=== PATIENT | female | born 1970 | race Caucasian/White ===

== ENCOUNTER → 2017-03-09 | Outpatient (CLI) | payer MEDICARE, MEDICAID ==
[~2017-03-09] MED LIST: ABILIFY10 MG PO; ACETAMINOPHEN-1 EAC1 PO; AMITRIPTYLINE H10 M1 PO; ASPIRIN81 M2 PO; ATORVASTATIN CA40 MG PO; BACTRIM DS TAB1 EACH PO; BENTYL; BENTYL 20 MG TA20 M1 PO; BISACODYL SUPP10 MG RECTAL; BUSPAR; BUSPAR30 MG PO; BYSTOLIC 5 MG5 M1 PO; CLOMIPRAMINE HC50 M1 PO; COLACE100 MG PO; DIABETA 1.25M1.25 M1; EFFEXOR; EFFEXOR XR150 MG PO; EFFEXOR50 MG PO; ERYTHROMYCIN E3.5 G1 OPHTHALMIC; FLEXERIL PO; GABAPENTIN; HYDROCHLOROTHIA25 M1 PO; JANUMET; JANUMET 50-5001 EACH PO; JANUMET XR 1001 EACH PO; JANUMET XR 50-1 EACH PO; JANUVIA100 MG PO; LANTUS SOL100 UNIT/1 SQ; LEVAQUIN 500 M50012 PO; LEVEMIR FL100 UNIT/2; LEXAPRO 10 MG T10 M1 PO; LIDOCAINE VISC100 ML PO; LIORESAL 10 MG10 MG PO; LISINOPRIL; LUNESTA; MEDROLDOSEPACK PO; METFORMIN; METFORMIN HCL500 MG PO; METOCLOPRAMIDE10 MG PO; MOBIC; MOBIC15 MG PO; NAPROSYN500 MG PO; NEURONTIN600 MG; NEXIUM; NEXIUM 40 MG CA40 M1 PO; NICOTINE TRANSD21 M1 TD; NICOTINE TRANSD21 M1 TRANSDERM; NORCO 10-325 T1 EACH PO; NORFLEX100 MG PO; OXYCONTIN10 M1 PO; PERCOCET 5-3251 EACH PO; PREDNISONE 10 M10 MG PO; PREDNISONE 20 M20 MG PO; PRINIVIL10 MG; PRINIVIL10 MG PO; PROMETHAZINE D480 ML PO; REGLAN 10 MG TA10 MG PO; ROBAXIN 750 MG750 M1; ROBAXIN 750 MG750 M1 PO; TESSALON PERLE100 MG PO; TOPAMAX 25 MG T25 M1 PO; TRULICITY0.75 MG/0.; TRULICITY0.75 MG/0. SQ; TYLENOL325 MG PO; VISTARIL; VITAMIN D32000 UNI1 PO; WELLBUTRIN XL300 MG; ZANAFLEX4 M1; ZIAC; ZIAC 10-6.25 M1 EACH PO; ZOCOR40 MG PO; ZOFRAN ODT4 MG PO; ZPAK PO
== END ==
LOC: M.RAD 14:49
DX: Z13.820 Encounter for screening for osteoporosis (principal); J44.1 Chronic obstructive pulmonary disease with (acute) exacerbation; Z78.0 Asymptomatic menopausal state

== ENCOUNTER → 2017-05-05 | Outpatient (CLI) | payer MEDICARE, MEDICAID | LOC: M.MRI 08:03 | DX: M50.10 Cervical disc disorder with radiculopathy, unspecified cervical region (principal); M25.78 Osteophyte, vertebrae; Z98.890 Other specified postprocedural states ==

== ENCOUNTER → 2017-05-25 | Outpatient (CLI) | payer MEDICARE, MEDICAID | LOC: M.RAD 13:07 | DX: Z12.31 Encounter for screening mammogram for malignant neoplasm of breast (principal); J44.1 Chronic obstructive pulmonary disease with (acute) exacerbation ==

== ENCOUNTER → 2017-06-10 | Outpatient (CLI) | payer MEDICARE, MEDICAID | LOC: M.RAD 12:16 | DX: M43.26 Fusion of spine, lumbar region (principal) ==

== ENCOUNTER → 2017-12-08 | Outpatient (CLI) | payer MEDICARE, MEDICAID ==
--- NOTE | ~2017-12-08 | PAINCON ---
[address] [address] PAIN MANAGEMENT CONSULTATION Name: CKJAMEE SU [facility] [id number] Admission: 12/08/17 Attend Phys: Deo Mcintosh MD Discharge: Date of : 66 Report #: [id number] THIS REPORT FOR: //name// CC: Dr. Gavin Dr. Pressley [facility] physician/PCP Deo Mcintosh DATE OF SERVICE: 12/08/2017 PRIMARY CARE PHYSICIAN: Dr. Tiera Loja CHIEF COMPLAINT: Pain in the arms, shoulders and hands. HISTORY OF PRESENT ILLNESS: The patient is a 47-year-old female who has been referred to the pain clinic. The patient has been having pain and discomfort, which has been problematic for some time. Notes that the pain is worse when she is moving in with activity. It is not sure that anything makes the pain significantly better. Describes it as continuous, constant, shooting, cramping, aching, pulling and tender. Rates her pain as a 9/10. She has had problems with pain in the back secondary to lumbar radiculopathy and has undergone decompressive lumbar laminectomy in the past. The surgeries were in 2009 and 2013. She has undergone epidural steroid injections in the past. The patient states that she is having pain in the neck. She has undergone cervical diskectomy with fusion at C5-C6. ALLERGIES: DILAUDID. PAST MEDICAL HISTORY: Diabetes, hypertension, liver disease, stomach problems, joint disease/arthritis, stage IV cirrhosis of liver, carpal tunnel problems. The patient complains of bilateral arm pain, shoulder pain, hand pain. She is experiencing frequent spasms. Has constant pain with weakness in her back and neck area. The patient is currently in physical therapy. She continues to note frequent tingling in her hands. PAST SURGICAL HISTORY: 1. Three lower back surgeries, neck surgery C5/C6 cervical fusion in 2013. 2. Left knee surgery. 3. Cholecystectomy in 2012. 4. Hysterectomy in 2012. 5. Lumbar surgery in 2012. 6. Cervical surgery with ACDS in 2013, persistent cervical pain with radiculopathy. SOCIAL HISTORY: [place] [address] PAIN MANAGEMENT CONSULTATION Name: JAMEE STOVER Room: [facility]#: [id number] Admission: 12/08/17 Attend Phys: Deo Mcintosh MD Discharge: Date of : 66 Report #: [id number] REVIEW OF SYSTEMS: Generally good health, recent weight change, decreased appetite, fever, night sweats, headaches, wears glasses, frequent coughs, loss of appetite, joint pain, joint stiffness, muscle weakness, muscle cramps, back pain, difficulty walking, diabetes, excessive thirst, frequent recurring headaches, numbness and tingling sensation over the arms. LABORATORY DATA: No new laboratory values are available. PAIN CLINIC ASSESSMENT/PQRS: 1. History of osteoarthritis. The patient is not being treated for rheumatoid arthritis. 2. Height 5 feet 3 inches, weight 181 pounds, BMI is 32. 3. Vital Signs: Blood pressure 150/107, heart rate 75, respiratory rate 18, room air saturation 97%, temperature 98.4. 4. Pain intensity 9/10. 5. Fall history: The patient states that she did fall over a chair as well as fall over while walking. 6. Blood thinner. The patient is on her blood thinning medication. 7. Hypertension. The patient is not being treated for hypertension. 8. Opioid greater than 6 weeks. The patient is not receiving opioid medications. 9. Risk assessment tool. 10. Functional assessment tool. 11. Recreational drug use. The patient denies use of recreational drugs. 12. Tobacco: Has smoked for 23 years, 1 pack of cigarettes per day at this juncture. 13. Alcohol: The patient denies frequent use of alcoholic beverages. PHYSICAL EXAMINATION: GENERAL: The patient is a well-developed, well-nourished white female. Appears her stated age. She is alert and oriented x 3. Her affect is appropriate. Speech is fluent. HEENT: Normocephalic, atraumatic. Extraocular eye muscles intact. Sclerae nonicteric. Mucous membranes are moist. NECK: Without JVD or adenopathy. LUNGS: Clear to auscultation. EXTREMITIES: The patient has some weakness involving her arms bilaterally, shoulders and down into her hands. Rates the pain as a 9/10 with numbness and tingling sensations in her hands. Notes some muscle spasms as well. IMPRESSION: 1. Cervical radiculopathy without myelopathy. 2. History of spondylolisthesis of the lumbar region. 3. Lumbar radiculopathy, history in the past. 4. History of SI joint inflammation. [address] [place] [address] PAIN MANAGEMENT CONSULTATION Name: JAMEE STOVER Room: [facility]#: [id number] Admission: 12/08/17 Attend Phys: Deo Mcintosh MD Discharge: Date of : 66 Report #: [id number] 5. Morbid obesity. 6. Obstructive sleep apnea. 7. Essential hypertension. 8. Type 2 diabetes. 9. Osteoarthritis of both knees. 10. Gastroesophageal reflux. 11. Gastroparesis. 12. Cervical spondylosis without myelopathy. 13. 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 14. Spondylolisthesis in the lumbar region. RECOMMENDATIONS: We discussed treatment options with the patient. At this point, we will consider a cervical epidural steroid injection. Unfortunately, the patient has had a flu shot. We explained to the patient the need to give us adequate amount of time for body to mount a response to the flu vaccine. She will return to the pain clinic in the near future. At that time, we will then undergo a cervical epidural steroid injection with the hope of decreasing the patient's pain and discomfort. We would like to thank you for letting us participate in her care. We hope she continues to improve. By: [id number]. Maldonado Mcintosh MD /KLAUDIA
== END ==
LOC: M.PC 02:48
DX: M79.602 Pain in left arm (principal); M79.601 Pain in right arm; M25.512 Pain in left shoulder; M25.511 Pain in right shoulder; M79.642 Pain in left hand; M79.641 Pain in right hand; M54.12 Radiculopathy, cervical region; M54.16 Radiculopathy, lumbar region; M43.16 Spondylolisthesis, lumbar region

== ENCOUNTER → 2019-03-15 | Outpatient (CLI) | payer MEDICARE, MEDICAID | LOC: M.RAD 13:33 | DX: Z12.31 Encounter for screening mammogram for malignant neoplasm of breast (principal) ==

== ENCOUNTER → 2019-12-25 | Outpatient (CLI) | payer MEDICARE, MEDICAID ==
[~2019-12-25] MED LIST changes: +AMITRIPTYLINE H10 M3 PO
--- NOTE | ~2019-12-25 | PAINCON ---
[address] [address] PAIN MANAGEMENT CONSULTATION Name: JAMEE STOVER Room: [facility].#: [id number] Admission: 12/25/19 Attend Phys: Deo Mcintosh MD Discharge: Date of : 66 Report #: [id number] THIS REPORT FOR: cc: RADHA RIVERA NP, KATHERINE J. NP ~ Deo Mcintosh MD DATE OF SERVICE: 12/25/2019 CHIEF COMPLAINT: Bilateral shoulder and neck pain. HISTORY: The patient is a 49-year-old female who has been referred to the pain clinic. She has noticed a worsening and return of pain and discomfort in her neck, shoulders, and rates it as an 8/10. In the past, she has had problems with her neck. She has undergone cervical fusion and diskectomy at C5-C6. She has noticed a recurrence of pain and discomfort, rates it as an 8/10. In the past, she has had an MRI of her shoulder, neck and chest. She has returned today with the hopes of undergoing a cervical epidural injection, notes that her pain is worse with walking, sitting, standing, climbing stairs, and bending, activities of daily living increases her discomfort. She does try heat as well as stretching. She has returned with the desire to undergo an epidural injection in the near future. ALLERGIES: DILAUDID. CURRENT MEDICATIONS: Tylenol 500 mg 1 p.o. p.r.n., Flexeril 10 mg, Nexium 20 mg b.i.d., insulin as directed, lisinopril 10 mg, Janumet 50/500, Lipitor, Bystolic. PAIN CLINIC ASSESSMENT AND PQRS: 1. The patient has some osteoarthritic changes in the neck area. She is not being treated for rheumatoid arthritis. 2. Height 5 feet 3 inches, weight 207 pounds, BMI 35. 3. Vital signs: Blood pressure is 130/70, heart rate 82, respiratory rate 18, room air saturation 97, temperature 97.5. 4. Pain intensity 09/16. 5. Fall history: The patient has not fallen in the last 3 months. 6. Blood thinner. The patient is not on a blood thinning medication. 7. Hypertension. The patient is not being treated for hypertension. 8. Opioids greater than 6 weeks. The patient receives receives medication from her primary. 9. Risk assessment tool, low for opioid use. 10. Functional assessment tool reviewed. 11. Recreational drug use: The patient denies. 12. Tobacco: The patient smoked 23 years, smokes 1 pack of cigarettes per day. 13. Alcohol. The patient denies frequent use [place] [address] PAIN MANAGEMENT CONSULTATION Name: JAMEE STOVER Room: [facility]#: [id number] Admission: 12/25/19 Attend Phys: Deo Mcintosh MD Discharge: Date of : 66 Report #: [id number] PHYSICAL EXAMINATION: GENERAL: The patient is a well-developed, well-nourished white female, appears her stated age. She is alert and oriented x 3. Her affect is appropriate. Speech is fluent. HEENT: Normocephalic, atraumatic. Extraocular eye muscles intact. The patient has a well-healed scar in the anterior portion of her neck. She complains of some increased pain in the lumbar area. Notes increased pain with flexion and extension of her neck. LUNGS: Clear to auscultation. EXTREMITIES: Muscle strength judged to be 5-/5 for the major muscle groups in the upper extremity. Muscle strength in the lower extremity, 5/5 for the major muscle groups in the lower extremity. IMPRESSION: 1. Cervical radiculopathy without myelopathy. 2. History of spondylolisthesis of the lumbar region. 3. History of lumbar radiculopathy in the past. 4. Sacroiliac joint inflammation. 5. Morbid obesity. 6. Obstructive sleep apnea. 7. Essential hypertension. 8. Type 2 diabetes. 9. Osteoarthritis of both knees. 10. Gastroesophageal reflux. 11. Gastroparesis. 12. Cervical spondylosis without myelopathy. 13. Osteoarthritis of the spine with radiculopathy. 14. Spondylolisthesis of the lumbar region. RECOMMENDATIONS: We discussed treatment options with the patient. The patient will undergo an epidural steroid injection. The risk and benefits of the procedure were discussed. They include but are not limited to infection, worsening pain, no improvement in pain, nerve damage, bleeding. The patient will return to the Pain Clinic, at which time she will then undergo a cervical epidural steroid injection. The patient has been provided Elavil. This medication can sometimes be helpful in decreasing pain and discomfort as well as improve sleep patterns. We would like to thank you for letting us participate in her care. She will return in the near future and undergo a cervical epidural steroid injection. By: [id number]. Maldonado Mcintosh MD /buzz
== END ==
LOC: M.PC 09:00
PROVIDERS: ATTEND Anesthesiology Pain Medicine
DX: M47.22 Other spondylosis with radiculopathy, cervical region (principal); M43.16 Spondylolisthesis, lumbar region; M46.1 Sacroiliitis, not elsewhere classified; I10 Essential (primary) hypertension; E11.9 Type 2 diabetes mellitus without complications; K21.9 Gastro-esophageal reflux disease without esophagitis; M25.512 Pain in left shoulder; M25.511 Pain in right shoulder

== ENCOUNTER → 2019-12-27 | Outpatient (CLI) | payer MEDICARE, MEDICAID ==
--- NOTE | 2020-01-14 10:43 | PAINCON ---
[address] [address] PAIN MANAGEMENT CONSULTATION Name: JAMEE STOVER Room: [facility]#: [id number] Admission: 12/27/19 Attend Phys: Deo Mcintosh MD Discharge: Date of : 66 Report #: [id number] THIS REPORT FOR: //name// cc: RADHA RIVERA NP, KATHERINE J. NP ~ CC: RADHA Mcintosh DATE OF SERVICE: 12/27/2019 CHIEF COMPLAINT: Pain in the arm, shoulder and hand. HISTORY: The patient is a 49-year-old female who has been seen in the pain clinic because of cervical radiculopathy. She has noted a recurrence of pain and discomfort, which is quite problematic. She notes that the pain is 9/10. As you may have recalled, she has had cervical intervention in the past. This was in 2009 and 2013. She has undergone epidural steroid injections. She has disk fusion at C5-C6. She has returned today for a cervical epidural steroid injection. ALLERGIES: DILAUDID. MEDICATIONS: Medications used in the past Nexium, lisinopril, Bystolic, Lipitor, Janumet 50/500, insulin. PAIN CLINIC ASSESSMENT AND PQRS: 1. Osteoarthritis: The patient is not being treated for rheumatoid arthritis. Does have some osteoarthritic pain in her neck. 2. Height 5 feet 3 inches, weight 207 pounds, BMI 35. 3. Vital signs: Blood pressure 130/75, pulse 82, respiratory rate 16, room air saturation 97%, temperature is 97.5. 4. Pain intensity 8/10. 5. Fall history: The patient has not fallen since we saw her last. 6. Blood thinner: The patient is not on a blood thinning medication. 7. Hypertension: The patient is not being treated for hypertension. 8. Opioids greater than 6 weeks: The patient is not receiving opioid medications. 9. Risk assessment tool: Low for opioid use. 10. Functional assessment tool: Reviewed. 11. Recreational drug use: The patient denies. 12. Tobacco: The patient has smoked for 23 years, smokes 1 pack of cigarettes per day at this juncture. 13. Alcohol: The patient denies frequent use of alcoholic beverages. PHYSICAL EXAMINATION: GENERAL: The patient is a well-developed, well-[place] [address] PAIN MANAGEMENT CONSULTATION Name: JAMEE STOVER SU Room: [facility]#: [id number] Admission: 12/27/19 Attend Phys: Deo Mcintosh MD Discharge: Date of : 66 Report #: [id number] her stated age. She is alert and oriented x 3. Her affect is appropriate. Speech is fluent. HEENT: Normocephalic, atraumatic. Extraocular eye muscles intact. Sclerae nonicteric. The patient has a well-healed scar in the anterior portion of her neck. Complains of some increased pain and discomfort with lumbar flexion and extension. LUNGS: Clear to auscultation. EXTREMITIES: Muscle strength judged to be 5/5 for the major muscle groups in the lower extremity. IMPRESSION: 1. Cervical radiculopathy without myelopathy. 2. History of spondylolisthesis of the lumbar region. 3. History of lumbar radiculopathy in the past. 4. History of sacroiliac joint inflammation. 5. Morbid obesity. 6. Obstructive sleep apnea. 7. Essential hypertension. 8. Type 2 diabetes. 9. Osteoarthritis of both knees. 10. Gastroesophageal reflux. 11. Gastroparesis. 12. Cervical spondylosis without myelopathy. 13. Osteoarthritis of the spine with radiculopathy. 14. Spondylolisthesis in the lumbar region. RECOMMENDATIONS: We discussed treatment options with the patient. Risks and benefits of a cervical epidural steroid injection were discussed. Possible complications of the procedure were reviewed. They include but are not limited to infection, worsening of pain, no improvement in pain, nerve damage, bleeding, and the patient elects to proceed. We have reminded the patient that steroid medications can elevate one's blood sugar. She will monitor her blood sugar level. COVID-19 is pandemic at this juncture. Should the patient become infected, she may have a more difficult time with the virus. She elects to proceed. PROCEDURE NOTE: The patient was taken to the procedure area. She was then assisted in getting on the examination table. Her back was sterilely prepped with a Betadine solution. A pillow was placed under the shoulders. A 0.25% bupivacaine was infiltrated at the C7-T1 interspace. A 17-gauge Tuohy with loss of resistance technique was used to gain access to the epidural space. There was no CSF, heme or paresthesia. Total of 120 mg triamcinolone was injected. The patient tolerated the procedure well. She remained in the Pain Clinic for an appropriate amount of time. She will call us if she has any concerns. We would like to thank you for letting us participate in her care[place] [address] PAIN MANAGEMENT CONSULTATION Name: JAMEE STOVER Room: [facility]#: [id number] Admission: 12/27/19 Attend Phys: Deo Mcintosh MD Discharge: Date of : 66 Report #: [id number] continues to improve. A total of 23 seconds fluoroscopy time was used. The patient's pain decreased to 3/10 at the time of discharge. <ELECTRONICALLY SIGNED> By: Deo Mcintosh MD 01/14/20 [id number]. Maldonado Mcintosh MD /[facility]
== END | disposition home or self-care (01) ==
LOC: M.PC 08:46
PROVIDERS: ATTEND Anesthesiology Pain Medicine
DX: M54.12 Radiculopathy, cervical region (principal); G89.29 Other chronic pain; M47.892 Other spondylosis, cervical region; M43.16 Spondylolisthesis, lumbar region; I10 Essential (primary) hypertension; E11.9 Type 2 diabetes mellitus without complications; G47.30 Sleep apnea, unspecified; M17.0 Bilateral primary osteoarthritis of knee; K21.9 Gastro-esophageal reflux disease without esophagitis; E66.01 Morbid (severe) obesity due to excess calories; Z98.890 Other specified postprocedural states; Z79.899 Other long term (current) drug therapy; Z68.35 Body mass index [BMI] 35.0-35.9, adult; Z79.4 Long term (current) use of insulin; Z88.8 Allergy status to other drugs, medicaments and biological substances

== ENCOUNTER → 2020-04-01 | Outpatient (CLI) | payer MEDICARE, MEDICAID | LOC: M.ULTRA 10:13 | PROVIDERS: ATTEND Nurse Practitioner Family | DX: Z12.31 Encounter for screening mammogram for malignant neoplasm of breast (principal); E04.2 Nontoxic multinodular goiter ==

== ENCOUNTER → 2020-11-19 | Outpatient (CLI) | payer MEDICARE, MEDICAID | LOC: M.ULTRA 11-13 09:26 | PROVIDERS: ATTEND Nurse Practitioner Family | DX: R59.1 Generalized enlarged lymph nodes (principal) ==

== ENCOUNTER → 2020-12-02 | Outpatient (CLI) | payer OTHER | LOC: M.CT 10:39 | PROVIDERS: ATTEND Internal Medicine Cardiovascular Disease | DX: Z13.6 Encounter for screening for cardiovascular disorders (principal); I25.10 Atherosclerotic heart disease of native coronary artery without angina pectoris ==

== ENCOUNTER 2020-12-17 01:04 | Emergency (ER) | payer MEDICARE, MEDICAID ==
[~2020-12-17] VITALS: Ht 165.1 cm; Wt 108.0 kg
[2020-12-17] MEDS ORDERED: LOVASTAT10 (01:14)
[2020-12-17 01:43] LABS: ABSOLUTE BASOPHILS 0.1 thou/uL (0.0-0.2); ABSOLUTE EOSINOPHILS 0.1 thou/uL (0.0-0.7); ABSOLUTE LYMPHOCYTES 2.5 thou/uL (0.8-5.3); ABSOLUTE MONOCYTES 0.5 thou/uL (0.0-1.2); ABSOLUTE NEUTROPHILS 4.1 thou/uL (1.6-8.1); BASOPHILS 1.3 %; HEMATOCRIT 43.3 % (37.0-47.0); HEMOGLOBIN 14.6 gm/dL (12.0-15.0); LYMPHOCYTES 33.8 %; MCH 31.2 pg (26.0-34.0); MCHC 33.7 g/dL (28.0-37.0); MCV 92.7 fL (80.0-100.0); MONOCYTES 7.1 %; MPV 8.8 fl. (7.2-11.1); NUCLEATED RBCS 0 /100WBC; PLATELET COUNT* 163 thou/uL (150-400); POLYS 55.8 %; RBC 4.67 mil/uL (4.20-5.00); RDW-CV 13.5 % (10.5-14.5); WBC 7.3 thou/uL (4.0-11.0)
[2020-12-17 01:46] LABS: CALCIUM 8.9 mg/dL (8.5-10.1); CREATININE 0.7 mg/dL (0.6-1.3)
[2020-12-17 01:54] LABS: POTASSIUM 2.6 mmol/L (3.5-5.1)
[2020-12-17 01:57] LABS: ALBUMIN 3.3 g/dL (3.4-5.0); MAGNESIUM 1.6 mg/dL (1.8-2.4); TOTAL BILIRUBIN 0.8 mg/dL (<0.1-1.0); TOTAL PROTEIN 6.8 g/dL (6.4-8.2)
[2020-12-17 02:33] LABS: URINE BILIRUBIN NEGATIVE (Negative); URINE BLOOD NEGATIVE (Negative); URINE CLARITY CLEAR; URINE COLOR YELLOW; URINE GLUCOSE-RANDOM NEGATIVE (Negative); URINE KETONES NEGATIVE (Negative); URINE LEUKOCYTES-REFLEX NEGATIVE (Negative); URINE NITRITE-REFLEX NEGATIVE (Negative); URINE PROTEIN NEGATIVE (Negative); URINE SPECIFIC GRAVITY 1.025 (1.005-1.030); URINE UROBILINOGEN 0.2 E.U./dl (0.2-1.0)
[2020-12-17 05:51] VITALS: BP 151/81
--- NOTE | 2020-12-17 08:51 | EKG ---
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 12/17/20 0851 Patrice Barnes MD, FAC /EPI
== END 2020-12-17 05:52 | disposition home or self-care (01) ==
LOC: M.ERS 01:04
PROVIDERS: Emergency Medicine
DX: E83.42 Hypomagnesemia (principal); E87.6 Hypokalemia; I10 Essential (primary) hypertension; E11.9 Type 2 diabetes mellitus without complications; F17.210 Nicotine dependence, cigarettes, uncomplicated; Z90.49 Acquired absence of other specified parts of digestive tract; Z90.710 Acquired absence of both cervix and uterus; Z90.89 Acquired absence of other organs; Z79.4 Long term (current) use of insulin; Z79.899 Other long term (current) drug therapy; Z88.5 Allergy status to narcotic agent